=== PATIENT | female | born 1960 | race Caucasian/White ===

== ENCOUNTER 2018-02-08 10:16 | Inpatient (IN) | payer OTHER ==
[~2018-02-08 10:16] MED LIST: ROCURONIUM 50 MG INJ
[2018-02-08 11:21] LABS: ADD MAN DIFF? NO
[2018-02-08 11:23] LABS: BASOPHILS % 0.8 % (0.0-2.0); EOSINOPHILS # 0.1 10^3/ul (0.0-0.5); EOSINOPHILS % 1.1 % (0.0-7.0); HEMATOCRIT 39.7 % (37.0-47.0); HEMOGLOBIN 13.2 g/dl (12.0-16.0); LYMPHOCYTES # 2.3 10^3/ul (0.8-2.9); LYMPHOCYTES % 43.2 % (15.0-51.0); MEAN CORPUSCULAR HEMOGLOBIN 30.6 pg (29.0-33.0); MEAN CORPUSCULAR HGB CONC 33.2 g/dl (32.0-37.0); MEAN CORPUSCULAR VOLUME 91.9 fl (82.0-101.0); MEAN PLATELET VOLUME 10.5 fl (7.4-10.4); MONOCYTE # 0.3 10^3/ul (0.3-0.9); MONOCYTES % 6.4 % (0.0-11.0); NEUTROPHIL # 2.6 10^3/ul (1.6-7.5); NEUTROPHILS % 48.3 % (39.0-77.0); PLATELET COUNT 152 10^3/UL (140-415); RED BLOOD COUNT 4.32 10^6/ul (4.20-5.40); RED CELL DISTRIBUTION WIDTH 11.7 % (11.5-14.5)
[2018-02-08 11:23] LABS: WHITE BLOOD COUNT 5.3 10^3/ul (4.8-10.8)
[2018-02-08 11:49] LABS: ALANINE AMINOTRANSFERASE 36 IU/L (13-69); ALBUMIN 4.1 g/dl (3.3-4.9); ALBUMIN/GLOBULIN RATIO 1.41; ALKALINE PHOSPHATASE 94 IU/L (42-121); ANION GAP 13 (8-16); ASPARTATE AMINO TRANSFERASE 28 IU/L (15-46); BILIRUBIN,INDIRECT 0.3 mg/dl (0-1.1); BILIRUBIN,TOTAL 0.3 mg/dl (0.2-1.3); CARBON DIOXIDE 31 mmol/L (21-31); CHLORIDE 107 mmol/L (97-110); GLUCOSE 112 mg/dl (70-220)
[2018-02-08 12:32] LABS: BLOOD UREA NITROGEN 10 mg/dl (7-20); CALCIUM 9.1 mg/dl (8.4-10.2); CREATININE 0.67 mg/dl (0.44-1.00); POTASSIUM 4.5 mmol/L (3.5-5.1); SODIUM 146 mmol/L (135-144)
[2018-02-08 12:54] LABS: INR 0.92; PARTIAL THROMBOPLASTIN TIME 28.1 Sec (25.0-35.0); PROTIME 12.4 Sec (11.9-14.9)
[2018-02-08] MEDS ORDERED: NEOSTIGMINE 3 MG/3 ML SYRINGE (13:29)
[2018-02-08] MEDS ORDERED: MIDAZOLAM 1 MG/ML 2 ML INJ (13:29)
[2018-02-08] MEDS ORDERED: DEXAMETHASONE 4 MG/ML 1 ML INJ (13:29)
[2018-02-08] MEDS ORDERED: CEFAZOLIN 1 GM INJ (13:29)
[2018-02-08] MEDS ORDERED: ONDANSETRON 4 MG INJ (13:29)
[2018-02-08] MEDS ORDERED: GLYCOPYRROLATE 0.4 MG INJ (13:29)
[2018-02-08] MEDS ORDERED: ROCURONIUM 50 MG INJ (13:29)
[2018-02-08] MEDS ORDERED: PROPOFOL 20 ML (13:29)
[2018-02-08] MEDS: LIDOCAINE 1%/EPI 30 ML INJ (14:21)
[2018-02-08] MEDS: GELATIN SIZE 100 SPONGE (14:21)
[2018-02-08] MEDS: THROMBIN 5000 UNIT VIAL (14:22)
[2018-02-08] MEDS: POLYMYXIN/BACITRACIN 1L IRRIG (14:22)
[2018-02-08] MEDS ORDERED: EPHEDrine SULFATE 50 MG/5 ML SYG IV ×2 (14:30)
[2018-02-08] MEDS ORDERED: TRIMETHOBENZAMIDE 100 MG/ML VIAL IM ×2 (14:30)
[2018-02-08] MEDS ORDERED: MIDAZOLAM 1 MG/ML 2 ML INJ IV ×2 (14:30)
[2018-02-08] MEDS ORDERED: OXYCODONE/ACETAMINOPHEN (5/325) TAB PO ×4 (14:30)
[2018-02-08] MEDS ORDERED: FENTAnyl 50 MCG/ML VIAL IV ×5 (14:30)
[2018-02-08] MEDS ORDERED: ONDANSETRON 4 MG INJ IV ×2 (14:30)
[2018-02-08] MEDS ORDERED: IPRATROPIUM (NEB) 0.5 MG/2.5 ML AMP HHN ×2 (14:30)
[2018-02-08] MEDS ORDERED: hydrALAzine 20 MG INJ IV ×2 (14:30)
[2018-02-08] MEDS ORDERED: MEPERIDINE 25 MG INJ IV ×2 (14:30)
[2018-02-08] MEDS ORDERED: ALBUTEROL 0.083% (NEB) 2.5 MG/3 ML AMP HHN ×2 (14:30)
[2018-02-08] MEDS ORDERED: LABETALOL HCL 20MG INJ IV ×2 (14:30)
[2018-02-08] MEDS ORDERED: HYDROmorphONE (0.2 MG/ML) 10ML SYG IV ×5 (14:30)
[2018-02-08] MEDS ORDERED: DIPHENHYDRAMINE 50 MG INJ IV ×2 (14:30)
[2018-02-08] MEDS: HYDROmorphONE (0.2 MG/ML) 10ML SYG IV (16:06)
[2018-02-08] MEDS: FENTAnyl 50 MCG/ML VIAL IV (16:06)
[2018-02-08] MEDS: DEXTROSE 5%-LR 1,000 ML IV (16:49)
[2018-02-08] MEDS: morphine 2 MG INJ IV ×2 (18:23→22:21)
[2018-02-08] MEDS: CEFAZOLIN 1 GM/50 ML (PMX) 50 ML IVPB (21:43)
[2018-02-08] MEDS: DEXAMETHASONE 4 MG/ML 1 ML INJ IV (21:43)
[2018-02-09] MEDS: DEXTROSE 5%-LR 1,000 ML IV ×4 (00:49→19:16)
[2018-02-09] MEDS: CEFAZOLIN 1 GM/50 ML (PMX) 50 ML IVPB ×3 (04:49→21:30)
[2018-02-09] MEDS: DEXAMETHASONE 4 MG/ML 1 ML INJ IV ×3 (04:49→21:31)
[2018-02-09] MEDS ORDERED: CEPASTAT LOZENGE MT (12:00)
[2018-02-09 12:55] LABS: ADD MAN DIFF? NO
[2018-02-09 12:57] LABS: WHITE BLOOD COUNT 16.6 10^3/ul (4.8-10.8)
[2018-02-09 12:57] LABS: BASOPHILS % 0.1 % (0.0-2.0); HEMATOCRIT 37.2 % (37.0-47.0); HEMOGLOBIN 12.7 g/dl (12.0-16.0); LYMPHOCYTES # 1.1 10^3/ul (0.8-2.9); LYMPHOCYTES % 6.8 % (15.0-51.0); MEAN CORPUSCULAR HEMOGLOBIN 30.6 pg (29.0-33.0); MEAN CORPUSCULAR HGB CONC 34.1 g/dl (32.0-37.0); MEAN CORPUSCULAR VOLUME 89.6 fl (82.0-101.0); MONOCYTE # 0.5 10^3/ul (0.3-0.9); MONOCYTES % 3.1 % (0.0-11.0); NEUTROPHIL # 14.9 10^3/ul (1.6-7.5); NEUTROPHILS % 89.6 % (39.0-77.0); PLATELET COUNT 149 10^3/UL (140-415); RED BLOOD COUNT 4.15 10^6/ul (4.20-5.40); RED CELL DISTRIBUTION WIDTH 11.6 % (11.5-14.5)
[2018-02-09 13:16] LABS: ANION GAP 12 (8-16); BLOOD UREA NITROGEN 9 mg/dl (7-20); CARBON DIOXIDE 29 mmol/L (21-31); CHLORIDE 107 mmol/L (97-110); CREATININE 0.52 mg/dl (0.44-1.00); GLUCOSE 204 mg/dl (70-220); SODIUM 144 mmol/L (135-144)
[2018-02-09] MEDS ORDERED: morphine LIQ (10 MG/5 ML) CUP PO (15:00)
[2018-02-09] MEDS: HYDROCODONE/APAP (5/325) TAB PO ×2 (15:11→21:42)
[2018-02-09] MEDS: ATORVASTATIN 20 MG TAB PO (21:30)
[2018-02-10 05:46] LABS: ADD MAN DIFF? NO
[2018-02-10 05:49] LABS: WHITE BLOOD COUNT 16.8 10^3/ul (4.8-10.8)
[2018-02-10 05:49] LABS: BASOPHILS % 0.1 % (0.0-2.0); HEMATOCRIT 35.2 % (37.0-47.0); LYMPHOCYTES # 1.4 10^3/ul (0.8-2.9); LYMPHOCYTES % 8.5 % (15.0-51.0); MEAN CORPUSCULAR HEMOGLOBIN 30.5 pg (29.0-33.0); MEAN CORPUSCULAR HGB CONC 34.1 g/dl (32.0-37.0); MEAN CORPUSCULAR VOLUME 89.6 fl (82.0-101.0); MEAN PLATELET VOLUME 11.5 fl (7.4-10.4); MONOCYTE # 0.4 10^3/ul (0.3-0.9); MONOCYTES % 2.4 % (0.0-11.0); NEUTROPHIL # 14.9 10^3/ul (1.6-7.5); NEUTROPHILS % 88.5 % (39.0-77.0); PLATELET COUNT 142 10^3/UL (140-415); RED BLOOD COUNT 3.93 10^6/ul (4.20-5.40); RED CELL DISTRIBUTION WIDTH 11.7 % (11.5-14.5)
[2018-02-10 06:22] LABS: ANION GAP 15 (8-16); BLOOD UREA NITROGEN 12 mg/dl (7-20); CALCIUM 9.1 mg/dl (8.4-10.2); CARBON DIOXIDE 27 mmol/L (21-31); CHLORIDE 105 mmol/L (97-110); CREATININE 0.52 mg/dl (0.44-1.00); GLUCOSE 205 mg/dl (70-220); SODIUM 143 mmol/L (135-144)
[2018-02-10] MEDS: HYDROCODONE/APAP (5/325) TAB PO (06:34)
[2018-02-10] MEDS: morphine 2 MG INJ IV (13:59)
[2018-02-10] MEDS: PANTOPRAZOLE (EC) 40 MG TAB PO (14:00)
[2018-02-10] MEDS: DEXTROSE 5%-LR 1,000 ML IV (17:58)
[2018-02-10] MEDS: ATORVASTATIN 20 MG TAB PO (20:16)
[2018-02-11] MEDS: morphine 2 MG INJ IV (00:12)
[2018-02-11] MEDS: PANTOPRAZOLE (EC) 40 MG TAB PO (06:15)
[2018-02-11] MEDS: HYDROCODONE/APAP (5/325) TAB PO ×2 (12:49→21:24)
[2018-02-11] MEDS ORDERED: morphine LIQ (10 MG/5 ML) CUP PO (18:30)
[2018-02-11] MEDS: ATORVASTATIN 20 MG TAB PO (20:20)
[2018-02-12] MEDS: ONDANSETRON 4 MG INJ IV (01:11)
[2018-02-12 05:41] LABS: ADD MAN DIFF? NO
[2018-02-12] MEDS: PANTOPRAZOLE (EC) 40 MG TAB PO (05:45)
[2018-02-12 05:49] LABS: BASOPHILS % 0.3 % (0.0-2.0); EOSINOPHILS # 0.1 10^3/ul (0.0-0.5); EOSINOPHILS % 0.8 % (0.0-7.0); HEMATOCRIT 37.4 % (37.0-47.0); HEMOGLOBIN 12.8 g/dl (12.0-16.0); LYMPHOCYTES # 3.8 10^3/ul (0.8-2.9); LYMPHOCYTES % 43.7 % (15.0-51.0); MEAN CORPUSCULAR HEMOGLOBIN 30.5 pg (29.0-33.0); MEAN CORPUSCULAR HGB CONC 34.2 g/dl (32.0-37.0); MEAN CORPUSCULAR VOLUME 89.3 fl (82.0-101.0); MEAN PLATELET VOLUME 11.1 fl (7.4-10.4); MONOCYTE # 0.5 10^3/ul (0.3-0.9); MONOCYTES % 6.3 % (0.0-11.0); NEUTROPHIL # 4.2 10^3/ul (1.6-7.5); NEUTROPHILS % 48.4 % (39.0-77.0); PLATELET COUNT 137 10^3/UL (140-415); RED BLOOD COUNT 4.19 10^6/ul (4.20-5.40); RED CELL DISTRIBUTION WIDTH 11.4 % (11.5-14.5)
[2018-02-12 05:49] LABS: WHITE BLOOD COUNT 8.6 10^3/ul (4.8-10.8)
[2018-02-12 06:01] LABS: POSITIVE DIFF @See below
[2018-02-12 06:19] LABS: ANION GAP 12 (8-16); BLOOD UREA NITROGEN 15 mg/dl (7-20); CARBON DIOXIDE 32 mmol/L (21-31); CHLORIDE 103 mmol/L (97-110); CREATININE 0.71 mg/dl (0.44-1.00); GLUCOSE 127 mg/dl (70-220); POTASSIUM 4.3 mmol/L (3.5-5.1); SODIUM 143 mmol/L (135-144)
[2018-02-12] MEDS: HYDROCODONE/APAP (5/325) TAB PO (09:36)
== END 2018-02-12 19:05 | disposition home or self-care (01) | DRG 471 ==
LOC: REC 10:16 → MS1 16:40
PROC: 0RG20A0 Fusion of 2 or more Cervical Vertebral Joints with Interbody Fusion Device, Anterior Approach, Anterior Column, Open Approach (ICD-10-PCS; principal; 2018-02-08 13:00)
DX: M50.022 Cervical disc disorder at C5-C6 level with myelopathy (principal); G82.50 Quadriplegia, unspecified; M50.122 Cervical disc disorder at C5-C6 level with radiculopathy; E78.5 Hyperlipidemia, unspecified; R73.03 Prediabetes; Z85.41 Personal history of malignant neoplasm of cervix uteri
CPT/HCPCS: 71045; 72050; 72141; 80048; 80053; 82962; 85025; 85610; 85730; 86850; 86900; 86901; 87086; 88304; 93005; 97110; 97116; 97161; 97530

== ENCOUNTER 2019-02-15 16:18 | Emergency (ER) | payer OTHER ==
[2019-02-15] MEDS: ONDANSETRON (ODT) 4 MG TAB ODT (17:35)
[2019-02-15] MEDS: MECLIZINE 12.5 MG TAB PO (17:35)
[2019-02-15 17:49] LABS: ADD UMIC YES; UR ASCORBIC ACID 40 mg/dL (NEGATIVE); UR BILIRUBIN (Dip) NEGATIVE (NEGATIVE); UR BLOOD (Dip) NEGATIVE (NEGATIVE); UR CLARITY CLEAR (CLEAR); UR COLOR YELLOW (YELLOW); UR GLUCOSE (Dip) NEGATIVE (NEGATIVE); UR KETONES (Dip) NEGATIVE (NEGATIVE); UR LEUKOCYTE ESTERASE (Dip) TRACE Leu/ul (NEGATIVE); UR NITRITE (Dip) NEGATIVE (NEGATIVE); UR RBC 1 /HPF (0-5); UR SPECIFIC GRAVITY (Dip) 1.016 (1.003-1.030); UR TOTAL PROTEIN (Dip) NEGATIVE (NEGATIVE); UR UROBILINOGEN (Dip) NEGATIVE (NEGATIVE); UR WBC 2 /HPF (0-5)
== END 2019-02-15 18:41 | disposition home or self-care (01) ==
LOC: FTE 16:18
DX: R42 Dizziness and giddiness (principal)
CPT/HCPCS: 70450; 81001; 82962; 93005; 99285-25